=== PATIENT | female | born 1960 | race Caucasian/White ===

== ENCOUNTER → 2017-02-07 | Outpatient (CLI) | payer BC ==
[~2017-02-07] MED LIST: ASCO500C43 PO; CALCTAB5 PO; LEVO112T4 PO; LORA-388 PO; MELO15TA4 PO; MINO2SOL EXT; MULT-506 PO; OMEG10007 PO; VITA400C3 PO
--- NOTE | 2017-02-08 13:22 | MAMMOGRAPHY REPORT ---
BILATERAL DIGITAL SCREENING MAMMOGRAM 3D/2D WITH CAD: 02/07/2017 CLINICAL HISTORY: Routine screening. Patient has no complaints. Comparison is made to exams dated: 02/06/2016 mammogram, 02/04/2015 mammogram, 01/30/2014 mammogram, mammogram, 12/20/2011 mammogram, and 12/17/2010 mammogram - [facility]. FINDINGS: There are scattered areas of fibroglandular density in both breasts. Current study was also evaluated with a Computer Aided Detection (CAD) system. No suspicious mass, architectural distortion or cluster of microcalcifications is seen. ACR BI-RADS CATEGORY 1: NEGATIVE There is no mammographic evidence of malignancy. A 1 year screening mammogram is recommended. The pa tient will receive written notification of the results. Approximately 10% of breast cancers are not detected with mammography. A negative mammographic report should not delay biopsy if a clinically suggestive mass is present. Paola Mendez M.D. ay/penrad:02/07/2017 15:46:41 Conveyancer: Irena STEINBERG(Shae)(Fer[place])([place]), [facility] letter sent: Normal 1/2 BI-RADS Code: ACR BI-RADS Category 1: Negative
== END | disposition home or self-care (01) ==
LOC: C.MAMM 13:46
PROVIDERS: ATTEND Family Medicine
DX: Z12.31 Encounter for screening mammogram for malignant neoplasm of breast (principal)

== ENCOUNTER → 2017-03-28 | Outpatient (CLI) | payer BC | END | disposition home or self-care (01) | LOC: C.PAPS 11:17 | PROVIDERS: ATTEND Family Medicine | DX: Z12.72 Encounter for screening for malignant neoplasm of vagina (principal) ==